=== PATIENT | female | born 1955 | race Caucasian/White ===

== ENCOUNTER 2024-03-13 17:05 | Emergency (ER) | payer MEDICARE, OTHER ==
[2024-03-13] MEDS: Sodium Chloride 0.9% 1,000 ML IV ONE ×2 (18:08→19:34)
[2024-03-13] MEDS: Morphine 4 MG/ML Syringe IVPUSH ONE (18:09)
[2024-03-13] MEDS: Ondansetron 4 MG/2 ML SDV IVPUSH ONE (18:09)
[2024-03-13 18:13] LABS: BASOPHILS PERCENT AUTO 0.2 % (0.0-1.0); EOSINOPHILS PERCENT AUTO 0.5 % (1.0-3.0); HEMATOCRIT 40.3 % (37.0-47.0); HEMOGLOBIN 13.5 g/dL (12.0-16.0); LYMPHOCYTES PERCENT AUTO 8.6 % (20.5-50.1); MEAN CORPUSCULAR HEMOGLOBIN 30.7 pg (27.0-34.0); MEAN CORPUSCULAR HGB CONC 33.5 g/dL (33.0-35.0); MEAN CORPUSCULAR VOLUME 91.6 fL (80-100); MONOCYTES PERCENT AUTO 16.8 % (2-8); NEUTROPHILS PERCENT AUTO 73.9 % (42.2-75.2); PLATELET COUNT,PLT 157 10^3/uL (150-450); WHITE BLOOD CELL COUNT,WBC 5.7 10^3/uL (5.0-10.0)
[2024-03-13] MEDS: Acetaminophen 325 MG Tab PO ONE (18:14)
[2024-03-13 18:25] LABS: A/G RATIO 1.1; ALBUMIN 3.9 g/dL (3.4-5.0); ANION GAP 16.5 mEq/L (7-13); BILIRUBIN TOTAL 0.3 mg/dL (0.2-1.0); BUN/CREATININE RATIO 13.1 (No establ ref range); CREATININE 0.99 mg/dL (0.55-1.02); EST CRCL DRUG DOSING (CG) 52.89 mL/min; MAGNESIUM 2.1 mg/dL (1.8-2.4); POTASSIUM,K 3.5 mmol/L (3.5-5.1); PROTEIN TOTAL,TP 7.4 g/dL (6.4-8.2)
[2024-03-13 18:27] LABS: LACTIC ACID 3.1 mmol/L (0.4-2.0)
[2024-03-13 19:09] LABS: CORONAVIRUS COVID-19 NAA NEGATIVE (NEGATIVE); INFLUENZA A NAA POSITIVE (NEGATIVE); INFLUENZA B NAA NEGATIVE (NEGATIVE); RESPIRATORY SYNCYTIAL VIR NAA NEGATIVE (NEGATIVE)
[2024-03-13] MEDS: HYDROmorphone 0.5 MG/0.5 ML Syringe IVPUSH ONE (20:07)
[2024-03-13] MEDS: Iopamidol 612 MG/ML 100 ML Bottle IVPUSH ONE (20:42)
[2024-03-13 21:28] VITALS: BP 91/58; PULSE 72
[2024-03-13 21:37] LABS: APPEARANCE,URINE CLEAR (CLEAR); BILIRUBIN,URINE NEGATIVE (NEGATIVE); COLOR,URINE YELLOW (YELLOW); GLUCOSE,URINE NEGATIVE (NEGATIVE); KETONES,URINE NEGATIVE (NEGATIVE); LEUKOCYTE ESTERASE,URINE NEGATIVE (NEGATIVE); NITRITE,URINE NEGATIVE (NEGATIVE); OCCULT BLOOD,URINE TRACE-INTACT (NEGATIVE); PROTEIN,URINE NEGATIVE (NEGATIVE); UROBILINOGEN,URINE 0.2 mg/dL (0.2-1.0)
[2024-03-13 21:46] LABS: AMORPHOUS SEDIMENT,URINE FEW /HPF (NOT SEEN); BACTERIA,URINE RARE /HPF (0-FEW/HPF); EPITHELIAL CELLS,URINE FEW /HPF (NOT SEEN); MUCUS,URINE RARE /LPF (NOT SEEN); RBC,URINE 0-5 /HPF (0-5); WBC,URINE 0-5 /HPF (0-5/HPF)
== END 2024-03-13 22:25 | disposition home or self-care (01) ==
LOC: DL.ED 17:05
DX: R31.21 Asymptomatic microscopic hematuria (principal); J11.1 Influenza due to unidentified influenza virus with other respiratory manifestations; K21.9 Gastro-esophageal reflux disease without esophagitis; Z90.49 Acquired absence of other specified parts of digestive tract; Z90.710 Acquired absence of both cervix and uterus; Z79.899 Other long term (current) drug therapy; Z88.8 Allergy status to other drugs, medicaments and biological substances; Z88.1 Allergy status to other antibiotic agents
CPT/HCPCS: 0241U; 36415; 71045; 74177; 80053; 81001; 83605; 83690; 83735; 84484; 85025; 87040; 93005; 96361; 96374; 96375; 99284; A9270; J1170; J2270; J2405; J7030; Q9967; 93010

== ENCOUNTER 2024-11-16 05:27 | Day surgery (SDC) | payer MEDICARE, OTHER ==
[~2024-11-16 05:27] MED LIST: Dextrose 5%-0.45% NaCl 1,000 ML IV SCH; Sodium Chloride 0.9% 10 ML Syringe FLUSH PRN; Sodium Chloride 0.9% 10 ML Syringe FLUSH SCH
[2024-11-16] MEDS: Dextrose 5%-0.45% NaCl 1,000 ML IV SCH (05:55)
[2024-11-16] MEDS ORDERED: fentaNYL 100 MCG/2 ML SDV ONE (06:10)
[2024-11-16] MEDS ORDERED: Midazolam 1 MG/ML 2 ML SDV IV ONE (06:10)
[2024-11-16] MEDS ORDERED: fentaNYL 100 MCG/2 ML SDV IV ONE (06:10)
[2024-11-16] MEDS ORDERED: Midazolam 1 MG/ML 2 ML SDV ONE (06:10)
[2024-11-16] MEDS: fentaNYL 100 MCG/2 ML SDV IV ONE ×2 (06:22→06:23)
[2024-11-16] MEDS: Midazolam 1 MG/ML 2 ML SDV IV ONE ×2 (06:23→06:24)
[2024-11-16 08:11] VITALS: BP 102/49; PULSE 60
== END 2024-11-16 08:35 | disposition home or self-care (01) ==
LOC: DL.ENDO 05:27
PROVIDERS: ATTEND Internal Medicine Gastroenterology
DX: K31.89 Other diseases of stomach and duodenum (principal); K21.9 Gastro-esophageal reflux disease without esophagitis; R13.10 Dysphagia, unspecified; K58.9 Irritable bowel syndrome, unspecified; Z98.890 Other specified postprocedural states; Z88.8 Allergy status to other drugs, medicaments and biological substances; Z91.040 Latex allergy status
CPT/HCPCS: 88305; J2250; J3010; J7799

== ENCOUNTER 2024-11-18 05:55 | Day surgery (SDC) | payer MEDICARE, OTHER ==
[2024-11-18] MEDS ORDERED: Midazolam 1 MG/ML 2 ML SDV IV ONE (05:56)
[2024-11-18] MEDS ORDERED: fentaNYL 100 MCG/2 ML SDV IV ONE (05:56)
[2024-11-18] MEDS ORDERED: fentaNYL 100 MCG/2 ML SDV ONE (06:16)
[2024-11-18] MEDS ORDERED: Midazolam 1 MG/ML 2 ML SDV ONE (06:16)
[2024-11-18] MEDS: Dextrose 5%-0.45% NaCl 1,000 ML IV SCH (06:28)
[2024-11-18] MEDS: fentaNYL 100 MCG/2 ML SDV IV ONE ×5 (06:57→07:08)
[2024-11-18] MEDS: Midazolam 1 MG/ML 2 ML SDV IV ONE ×6 (06:58→07:05)
[2024-11-18 08:07] VITALS: BP 102/57; PULSE 65
== END 2024-11-18 08:35 | disposition home or self-care (01) ==
LOC: DL.ENDO 05:55
PROVIDERS: ATTEND Internal Medicine Gastroenterology
DX: K62.1 Rectal polyp (principal); K21.9 Gastro-esophageal reflux disease without esophagitis; E78.5 Hyperlipidemia, unspecified
CPT/HCPCS: 45385; 88305; J2250; J3010; J7799

== ENCOUNTER 2025-02-23 22:57 | Emergency (ER) | payer MEDICARE, OTHER ==
[2025-02-23] MEDS: Sodium Chloride 0.9% 1,000 ML IV ONE (23:24)
[2025-02-23] MEDS: Ondansetron 4 MG/2 ML SDV IVPUSH ONE (23:24)
[2025-02-23] MEDS: Ketorolac 30 MG/ML SDV IVPUSH ONE (23:24)
[2025-02-23 23:31] LABS: BASOPHILS PERCENT AUTO 0.1 % (0.0-1.0); EOSINOPHILS PERCENT AUTO 0.3 % (1.0-3.0); HEMATOCRIT 46.7 % (37.0-47.0); HEMOGLOBIN 15.3 g/dL (12.0-16.0); LYMPHOCYTES PERCENT AUTO 3.9 % (20.5-50.1); MEAN CORPUSCULAR HGB CONC 32.8 g/dL (33.0-35.0); MEAN CORPUSCULAR VOLUME 94.7 fL (80-100); NEUTROPHILS PERCENT AUTO 91.7 % (42.2-75.2); PLATELET COUNT,PLT 172 10^3/uL (150-450); RED BLOOD CELL COUNT 4.93 10^6/uL (4.2-5.4); WHITE BLOOD CELL COUNT,WBC 12.3 10^3/uL (5.0-10.0)
[2025-02-23 23:41] LABS: A/G RATIO 1.2; ALANINE AMINOTRANSFERASE,ALT 38 U/L (14-59); ALKALINE PHOSPHATASE 72 U/L (46-116); ASPARTATE AMNIOTRANSFERASE,AST 24 U/L (15-37); BILIRUBIN TOTAL 0.6 mg/dL (0.2-1.0); BLOOD UREA NITROGEN,BUN 19 mg/dL (7-18); BUN/CREATININE RATIO 17.4 (No establ ref range); CALCIUM 9.1 mg/dL (8.5-10.1); CARBON DIOXIDE,CO2 31 mmol/L (21-32); CHLORIDE,CL 104 mmol/L (98-107); CREATININE 1.09 mg/dL (0.55-1.02); GLUCOSE RANDOM 116 mg/dL (70-99); LIPASE 49 U/L (16-77); MAGNESIUM 1.8 mg/dL (1.8-2.4); PROTEIN TOTAL,TP 7.4 g/dL (6.4-8.2); SODIUM,NA 143 mmol/L (136-145)
[2025-02-23 23:49] LABS: ESTIMATED GFR 55 mL/min (>=60); LACTIC ACID 2.1 mmol/L (0.4-2.0)
[2025-02-24] MEDS: Ondansetron 4 MG/2 ML SDV IVPUSH ONE (00:30)
[2025-02-24] MEDS: Sodium Chloride 0.9% 1,000 ML IV ONE ×2 (00:35→02:27)
[2025-02-24] MEDS: diphenhydrAMINE 25 MG Tab PO ONE (01:25)
[2025-02-24] MEDS: Prochlorperazine 5 MG Tab PO ONE (01:25)
[2025-02-24] MEDS: GI Cocktail Oral Solution 30 ML PO ONE (01:56)
[2025-02-24 02:05] VITALS: BP 109/55; PULSE 83
[2025-02-24] MEDS ORDERED: Pantoprazole 40 MG in Sodium Chloride 0.9% 100 ML IV SCH ×2 (02:15→02:30)
[2025-02-24] MEDS: Pantoprazole 40 MG Vial IVPUSH ONE (02:26)
[2025-02-24] MEDS: fentaNYL 100 MCG/2 ML SDV IVPUSH ONE (02:26)
[2025-02-24] MEDS: Iopamidol 612 MG/ML 100 ML Bottle IVPUSH ONE (02:45)
[2025-02-24] MEDS: Doxycycline Monohydrate 100 MG Cap PO ONE (05:45)
[2025-02-24] MEDS: Take Home: Ondansetron 4 MG Tab.DIS, 5 Tab Pack PO ONE (05:45)
== END 2025-02-24 06:06 | disposition home or self-care (01) ==
LOC: DL.ED 22:57
DX: K52.9 Noninfective gastroenteritis and colitis, unspecified (principal); J18.9 Pneumonia, unspecified organism; E86.0 Dehydration; Z88.1 Allergy status to other antibiotic agents; Z88.8 Allergy status to other drugs, medicaments and biological substances; Z91.040 Latex allergy status; Z79.899 Other long term (current) drug therapy
CPT/HCPCS: 36415; 71045; 74177; 80053; 83605; 83690; 83735; 85025; 96361; 96374; 96375; 96376; 99284; A9270; J1885; J2405; J2470; J3010; J7030; Q0162; Q0164; Q9967